=== PATIENT | female | born 1975 | race Caucasian/White ===

== ENCOUNTER 2017-08-29 19:10 | Outpatient (CLI) | payer OTHER ==
[~2017-08-29] VITALS: Ht 154.9 cm; Wt 72.7 kg
[2017-08-29] VITALS (8 sets, daily range): BP systolic 134–148; BP diastolic 90–102; PULSE 68–89; TEMP 98.1
[2017-08-29] MEDS ORDERED: PRENATAL1 TA7 PO (19:34)
[2017-08-29] MEDS ORDERED: OSCAL 500 TAB500 MG PO (19:35)
[2017-08-29] MEDS ORDERED: FIBER0.52 GM PO (19:35)
[2017-08-29 20:25] LABS: BASO % 0.4 % (0.0-2.0); EOS # 0.2 (0.0-0.7); EOS % 1.6 % (0-4.0); GRAN # 8.1 (1.4-6.5); GRAN % 74.9 % (42.2-75.2); HEMATOCRIT 38.2 % (37.0-47.0); HEMOGLOBIN 13.1 g/dl (12.5-16.0); LYMPH # 1.6 (1.2-3.4); LYMPH % 15.2 % (20.0-51.0); MEAN CELL VOLUME 91 fl (80.0-100.0); MEAN CORPUSCULAR HEMOGLOBIN 31 pg (27.0-31.0); MEAN CORPUSCULAR HGB CONC 34 g/dl (33.0-37.0); MEAN PLATELET VOLUME 11.5 fl (7.4-10.4); MONO # 0.8 (0.1-0.6); MONO % 7.3 % (1.7-9.3); PLATELET COUNT 169 K/mm3 (130-400); WHITE BLOOD COUNT 10.8 K/mm3 (4.8-10.8)
[2017-08-29 20:40] LABS: ADJUSTED CALCIUM 10.3 mg/dL (8.4-10.2); ALBUMIN 2.6 gm/dL (3.5-5.0); BILIRUBIN,TOTAL 0.3 mg/dL (0.0-1.0); CALCIUM 9.2 mg/dL (8.4-10.2); CREATININE, serum 0.61 mg/dL (0.52-1.25); POTASSIUM 3.8 mmol/L (3.4-5.0); TOTAL PROTEIN 5.5 gm/dL (6.4-8.2)
== END 2017-08-29 21:25 | disposition home or self-care (01) ==
LOC: LDRO 19:10
PROVIDERS: Obstetrics & Gynecology
DX: O13.3 Gestational [pregnancy-induced] hypertension without significant proteinuria, third trimester (principal); Z3A.35 35 weeks gestation of pregnancy
CPT/HCPCS: J0702

== ENCOUNTER 2017-08-30 18:57 | Outpatient (CLI) | payer OTHER ==
[~2017-08-30] VITALS: Ht 154.9 cm; Wt 72.7 kg
[~2017-08-30 18:57] MED LIST: FIBER0.52 GM PO; OSCAL 500 TAB500 MG PO; PRENATAL1 TA7 PO
[2017-08-30 19:16] VITALS: BP 138/103; PULSE 85; TEMP 97.7
[2017-08-30 19:21] VITALS: BP 135/92; PULSE 81
[2017-08-30 19:30] VITALS: BP 128/68; PULSE 75
== END 2017-08-30 19:42 | disposition home or self-care (01) ==
LOC: LDRO 18:57
DX: O14.93 Unspecified pre-eclampsia, third trimester (principal); Z3A.35 35 weeks gestation of pregnancy
CPT/HCPCS: J0702

== ENCOUNTER 2017-09-04 07:10 | Outpatient (CLI) | payer OTHER ==
[~2017-09-04] VITALS: Ht 154.9 cm; Wt 75.9 kg
[2017-09-04 07:51] VITALS: BP 136/103; PULSE 76; TEMP 98.1
[2017-09-04] MEDS ORDERED: ZOVIRAX400 MG PO (07:54)
[2017-09-04 08:00] VITALS: BP 141/103; PULSE 74
[2017-09-04 08:30] VITALS: BP 141/97; PULSE 65
[2017-09-04 08:56] LABS: BASO % 0.1 % (0.0-2.0); EOS # 0.1 (0.0-0.7); EOS % 0.7 % (0-4.0); GRAN # 9.4 (1.4-6.5); HEMATOCRIT 38.6 % (37.0-47.0); HEMOGLOBIN 13.4 g/dl (12.5-16.0); LYMPH # 1.7 (1.2-3.4); LYMPH % 13.7 % (20.0-51.0); MEAN CELL VOLUME 91 fl (80.0-100.0); MEAN CORPUSCULAR HEMOGLOBIN 32 pg (27.0-31.0); MEAN CORPUSCULAR HGB CONC 35 g/dl (33.0-37.0); MEAN PLATELET VOLUME 11.7 fl (7.4-10.4); MONO # 0.8 (0.1-0.6); MONO % 6.7 % (1.7-9.3); PLATELET COUNT 161 K/mm3 (130-400); RED BLOOD COUNT 4.23 M/mm3 (4.10-5.30)
[2017-09-04 09:00] VITALS: BP 148/98; PULSE 66
[2017-09-04 09:01] LABS: MUCOUS Present /lpf; PH 5 (5-8); URINE APPEARANCE Hazy; URINE BACTERIA Rare /hpf; URINE BILIRUBIN Negative (NEGATIVE); URINE BLOOD Negative (NEGATIVE); URINE COLOR Amber; URINE GLUCOSE Negative (NEGATIVE); URINE KETONE Negative (NEGATIVE); URINE LEUKOCYTE ESTERASE Negative (NEGATIVE); URINE PROTEIN(semi-quant) 3+ (NEGATIVE); URINE UROBILINOGEN Negative (NEGATIVE)
[2017-09-04 09:06] LABS: ADJUSTED CALCIUM 9.4 mg/dL (8.4-10.2); ALBUMIN 2.3 gm/dL (3.5-5.0); BILIRUBIN,TOTAL 0.3 mg/dL (0.0-1.0); CREATININE, serum 0.65 mg/dL (0.52-1.25); POTASSIUM 3.9 mmol/L (3.4-5.0); TOTAL PROTEIN 4.8 gm/dL (6.4-8.2)
[2017-09-04 09:19] VITALS: BP 128/95; PULSE 75
[2017-09-04 09:32] LABS: COLLECTION METHOD CLEAN CATCH
== END 2017-09-04 09:30 | disposition home or self-care (01) ==
LOC: LDRO 07:10
PROVIDERS: Obstetrics & Gynecology
DX: O13.3 Gestational [pregnancy-induced] hypertension without significant proteinuria, third trimester (principal); Z3A.36 36 weeks gestation of pregnancy

== ENCOUNTER 2017-09-10 06:41 | Inpatient (IN) | payer OTHER ==
[2017-09-10] VITALS (62 sets, daily range): BP systolic 123–188; BP diastolic 81–125; PULSE 64–91; TEMP 98–99
[~2017-09-10] VITALS: Ht 154.9 cm; Wt 74.2 kg
[~2017-09-10 06:41] MED LIST changes: +ZOVIRAX400 MG PO
[2017-09-10 08:08] LABS: BASO % 0.2 % (0.0-2.0); EOS # 0.1 (0.0-0.7); EOS % 0.7 % (0-4.0); GRAN # 9.5 (1.4-6.5); GRAN % 78.5 % (42.2-75.2); HEMATOCRIT 42.2 % (37.0-47.0); HEMOGLOBIN 14.7 g/dl (12.5-16.0); LYMPH # 1.7 (1.2-3.4); LYMPH % 13.9 % (20.0-51.0); MEAN CELL VOLUME 90 fl (80.0-100.0); MEAN CORPUSCULAR HEMOGLOBIN 32 pg (27.0-31.0); MEAN CORPUSCULAR HGB CONC 35 g/dl (33.0-37.0); MEAN PLATELET VOLUME 12.4 fl (7.4-10.4); MONO # 0.7 (0.1-0.6); PLATELET COUNT 174 K/mm3 (130-400); RED BLOOD COUNT 4.67 M/mm3 (4.10-5.30); WHITE BLOOD COUNT 12.1 K/mm3 (4.8-10.8)
[2017-09-10 08:21] LABS: ADJUSTED CALCIUM 9.8 mg/dL (8.4-10.2); ALBUMIN 2.4 gm/dL (3.5-5.0); BILIRUBIN,TOTAL 0.4 mg/dL (0.0-1.0); CALCIUM 8.5 mg/dL (8.4-10.2); CREATININE, serum 0.75 mg/dL (0.52-1.25); POTASSIUM 3.9 mmol/L (3.4-5.0); TOTAL PROTEIN 5.3 gm/dL (6.4-8.2)
[2017-09-11] VITALS (28 sets, daily range): BP systolic 119–142; BP diastolic 70–95; PULSE 64–91; TEMP 97.4–98.4
[2017-09-11 07:54] LABS: BASO % 0.2 % (0.0-2.0); EOS # 0.1 (0.0-0.7); EOS % 0.4 % (0-4.0); GRAN % 84.8 % (42.2-75.2); LYMPH # 1.5 (1.2-3.4); MEAN CELL VOLUME 92 fl (80.0-100.0); MEAN CORPUSCULAR HGB CONC 34 g/dl (33.0-37.0); MEAN PLATELET VOLUME 11.8 fl (7.4-10.4); MONO # 0.8 (0.1-0.6); PLATELET COUNT 162 K/mm3 (130-400); RED BLOOD COUNT 3.97 M/mm3 (4.10-5.30); WHITE BLOOD COUNT 16.5 K/mm3 (4.8-10.8)
[2017-09-11 08:01] LABS: HEMATOCRIT 36.5 % (37.0-47.0); HEMOGLOBIN 12.5 g/dl (12.5-16.0); MEAN CORPUSCULAR HEMOGLOBIN 31 pg (27.0-31.0)
[2017-09-11 08:04] LABS: ADJUSTED CALCIUM 8.4 mg/dL (8.4-10.2); ALBUMIN 2.1 gm/dL (3.5-5.0); BILIRUBIN,TOTAL 0.3 mg/dL (0.0-1.0); CALCIUM 6.9 mg/dL (8.4-10.2); CREATININE, serum 0.75 mg/dL (0.52-1.25); TOTAL PROTEIN 4.1 gm/dL (6.4-8.2)
[2017-09-11] MEDS ORDERED: PERCOCET 325 MG1 TA2 PO (16:31)
[2017-09-11] MEDS ORDERED: MOTRIN 800800 MG/TAB PO (16:31)
[2017-09-12 03:35] VITALS: BP 144/99; PULSE 79
[2017-09-12 08:16] VITALS: BP 140/91; PULSE 87; TEMP 97.8
[2017-09-12 09:05] LABS: ALBUMIN 2.3 gm/dL (3.5-5.0); BILIRUBIN,TOTAL 0.3 mg/dL (0.0-1.0); CALCIUM 7.6 mg/dL (8.4-10.2); CREATININE, serum 0.75 mg/dL (0.52-1.25); POTASSIUM 4.4 mmol/L (3.4-5.0); TOTAL PROTEIN 4.5 gm/dL (6.4-8.2)
== END 2017-09-12 14:45 | disposition home or self-care (01) | DRG 775 ==
LOC: LDR 06:41 → OB 09-11 11:45
PROVIDERS: Obstetrics & Gynecology
PROC: 10E0XZZ Delivery of Products of Conception, External Approach (ICD-10-PCS; principal; 2017-09-10)
PROC: 0KQM0ZZ Repair Perineum Muscle, Open Approach (ICD-10-PCS; 2017-09-10)
PROC: 3E033VJ Introduction of Other Hormone into Peripheral Vein, Percutaneous Approach (ICD-10-PCS; 2017-09-10)
DX: O14.14 Severe pre-eclampsia complicating childbirth (principal); O36.5930 Maternal care for other known or suspected poor fetal growth, third trimester, not applicable or unspecified; O99.824 Streptococcus B carrier state complicating childbirth; O70.1 Second degree perineal laceration during delivery; Z3A.37 37 weeks gestation of pregnancy; Z37.0 Single live birth
CPT/HCPCS: J2405; J2540; J2590; J3475; J7120

== ENCOUNTER → 2017-09-30 | Outpatient (CLI) | payer OTHER ==
[~2017-09-30] MED LIST changes: +MOTRIN 800800 MG/TAB PO; +PERCOCET 325 MG1 TA2 PO
== END ==
LOC: OLC 10:59
DX: Z39.1 Encounter for care and examination of lactating mother (principal); Z71.89 Other specified counseling

== ENCOUNTER → 2017-10-14 | Outpatient (CLI) | payer OTHER | LOC: OLC 13:07 | DX: Z39.1 Encounter for care and examination of lactating mother (principal); Z71.89 Other specified counseling ==